=== PATIENT | male | born 1990 | race Caucasian/White ===

== ENCOUNTER 2022-08-30 00:58 | Emergency (ER) | payer BC ==
[~2022-08-30] VITALS: Ht 172.7 cm; Wt 65.8 kg
[2022-08-30] MEDS ORDERED: ZITHROMAX250 MG PO (02:49)
[2022-08-30] MEDS ORDERED: PREDNISONE20 M1 PO (02:49)
== END 2022-08-30 02:52 | disposition home or self-care (01) ==
LOC: ED 00:58
DX: J06.9 Acute upper respiratory infection, unspecified (principal); J45.901 Unspecified asthma with (acute) exacerbation; Z20.822 Contact with and (suspected) exposure to COVID-19

== ENCOUNTER 2022-11-26 10:54 | Emergency (ER) | payer BC ==
[~2022-11-26] VITALS: Ht 175.2 cm; Wt 90.7 kg
[~2022-11-26 10:54] MED LIST: PREDNISONE20 M1 PO; ZITHROMAX250 MG PO
[2022-11-26 11:34] LABS: BASO # 0.1 10*3/uL (0.0-0.1); BASO % 1.1 % (0.0-1.0); EOS % 8.5 % (1.0-4.0); HEMATOCRIT 48.3 % (42.0-52.0); LYMPH # 2.9 10*3/uL (1.3-4.4); LYMPH % 24.1 % (27.0-41.0); MEAN CELL VOLUME 92.2 fl (80.0-94.0); MEAN CORPUSCULAR HGB 30.5 pg (27.0-31.0); MEAN CORPUSCULAR HGB CONC 33.1 g/dl (33.0-37.0); MEAN PLATELET VOLUME 10.5 fl (9.6-12.3); MONO # 0.8 10*3/uL (0.1-1.0); MONO % 6.7 % (3.0-9.0); NEUT % 59.3 % (47.0-73.0); PLATELET COUNT AUTOMATED 256 10*3/uL (130-400); RED BLOOD COUNT 5.24 10*6/uL (4.50-5.90); RED CELL DISTRI WIDTH 12.9 % (0-14.5); WHITE BLOOD COUNT 11.8 10*3/uL (4.8-10.8)
[2022-11-26 11:49] LABS: ALKALINE PHOSPHATASE 65 U/L (46-116); BUN 12 mg/dl (9-23); CHLORIDE 109 mmol/L (98-107); POTASSIUM 3.6 mmol/L (3.4-5.1); SGPT/ALT 21 U/L (10-49); TOTAL PROTEIN 6.9 gm/dL (6.0-8.0)
[2022-11-26] MEDS ORDERED: VIBRA-TAB100 MG PO (11:49)
[2022-11-26] MEDS ORDERED: PROVENTIL HFA6.7 GM PO (11:49)
[2022-11-26] MEDS ORDERED: PREDNISONE10 MG PO (11:49)
== END 2022-11-26 12:35 | disposition home or self-care (01) ==
LOC: ED 10:54
PROVIDERS: Emergency Medicine
DX: J45.901 Unspecified asthma with (acute) exacerbation (principal); Z87.891 Personal history of nicotine dependence

== ENCOUNTER 2023-03-28 00:40 | Emergency (ER) | payer BC ==
[~2023-03-28] VITALS: Ht 172.7 cm; Wt 68.0 kg
[~2023-03-28 00:40] MED LIST changes: +PREDNISONE10 MG PO; +PROVENTIL HFA6.7 GM PO; +VIBRA-TAB100 MG PO
[2023-03-28 01:34] LABS: BASO # 0.2 10*3/uL (0.0-0.1); BASO % 1.3 % (0.0-1.0); EOS % 8.5 % (1.0-4.0); HEMATOCRIT 49.4 % (42.0-52.0); LYMPH # 3.2 10*3/uL (1.3-4.4); LYMPH % 27.9 % (27.0-41.0); MEAN CELL VOLUME 90.5 fl (80.0-94.0); MEAN CORPUSCULAR HGB 31.1 pg (27.0-31.0); MEAN CORPUSCULAR HGB CONC 34.4 g/dl (33.0-37.0); MEAN PLATELET VOLUME 10.5 fl (9.6-12.3); MONO # 0.7 10*3/uL (0.1-1.0); MONO % 6.1 % (3.0-9.0); NEUT # 6.4 10*3/uL (2.3-7.9); NEUT % 55.8 % (47.0-73.0); PLATELET COUNT AUTOMATED 296 10*3/uL (130-400); RED BLOOD COUNT 5.46 10*6/uL (4.50-5.90); RED CELL DISTRI WIDTH 12.7 % (0-14.5); WHITE BLOOD COUNT 11.5 10*3/uL (4.8-10.8)
[2023-03-28 01:56] LABS: ALKALINE PHOSPHATASE 70 U/L (46-116); BUN 10 mg/dl (9-23); CHLORIDE 104 mmol/L (98-107); POTASSIUM 3.8 mmol/L (3.4-5.1); SGPT/ALT 28 U/L (10-49); TOTAL PROTEIN 7.5 gm/dL (6.0-8.0)
[2023-03-28] MEDS ORDERED: PREDNISONE10 M1 PO (03:32)
[2023-03-28] MEDS ORDERED: PROVENTIL HFA6.7 GM INH (03:32)
== END 2023-03-28 03:52 | disposition home or self-care (01) ==
LOC: ED 00:40
PROVIDERS: Emergency Medicine
DX: J45.901 Unspecified asthma with (acute) exacerbation (principal); Z79.899 Other long term (current) drug therapy; Z79.2 Long term (current) use of antibiotics

== ENCOUNTER 2023-09-21 21:18 | Emergency (ER) | payer SELFPAY ==
[~2023-09-21] VITALS: Ht 172.7 cm; Wt 68.0 kg
[~2023-09-21 21:18] MED LIST changes: +PREDNISONE10 M1 PO; +PROVENTIL HFA6.7 GM INH
[2023-09-21 21:39] LABS: BASO # 0.1 10*3/uL (0.0-0.1); BASO % 0.9 % (0.0-1.0); EOS # 0.4 10*3/uL (0.0-0.4); EOS % 2.6 % (1.0-4.0); HEMATOCRIT 51.5 % (42.0-52.0); LYMPH # 2.2 10*3/uL (1.3-4.4); LYMPH % 14.7 % (27.0-41.0); MEAN CORPUSCULAR HGB 29.9 pg (27.0-31.0); MEAN CORPUSCULAR HGB CONC 33.2 g/dl (33.0-37.0); MEAN PLATELET VOLUME 10.2 fl (9.6-12.3); MONO % 6.5 % (3.0-9.0); NEUT # 11.1 10*3/uL (2.3-7.9); NEUT % 74.9 % (47.0-73.0); PLATELET COUNT AUTOMATED 359 10*3/uL (130-400); RED BLOOD COUNT 5.72 10*6/uL (4.50-5.90); RED CELL DISTRI WIDTH 12.2 % (0-14.5); WHITE BLOOD COUNT 14.8 10*3/uL (4.8-10.8)
[2023-09-21 22:04] LABS: ALKALINE PHOSPHATASE 89 U/L (46-116); BUN 8 mg/dl (9-23); CHLORIDE 107 mmol/L (98-107); CPK 126 U/L (34-171); LIPASE 32 U/L (12-53); POTASSIUM 3.8 mmol/L (3.4-5.1); SGPT/ALT 19 U/L (5-49); TOTAL PROTEIN 8.2 gm/dL (6.0-8.0)
[2023-09-21 22:05] LABS: ETHYL ALCOHOL < 3.0 mg/dl (<3)
[2023-09-21 22:24] LABS: BILIRUBIN Negative (Negative); BLOOD Negative (Negative); CLARITY Clear (Clear); COLOR Yellow (Yellow); GLUCOSE Negative (Negative); KETONE 1+ (Negative); LEUKO ESTERASE Trace (Negative); NITRITE Negative (Negative); PH 6.5 (4.5-8.0); SPECIFIC GRAVITY 1.015 (1.001-1.030)
[2023-09-21 22:31] LABS: URINE AMPHETAMINES Negative (1000ng/ml); URINE BARBITURATES Negative (200ng/ml); URINE BENZODIAZEPINES Negative (200ng/ml); URINE CANNABINOIDS (THC) Negative (50ng/ml); URINE COCAINE Negative (300ng/ml); URINE METHADONE Negative (300ng/ml); URINE OPIATES Negative (300ng/ml); URINE PHENCYCLIDINE Negative (25ng/ml)
[2023-09-21 23:15] LABS: BACTERIA 1+; MUCOUS 1+; RBC 0-2 rbc/hpf (0-2)
== END 2023-09-22 11:11 | disposition home or self-care (01) ==
LOC: ED 21:18
PROVIDERS: Internal Medicine
DX: F43.21 Adjustment disorder with depressed mood (principal); J45.909 Unspecified asthma, uncomplicated; Z79.899 Other long term (current) drug therapy

== ENCOUNTER 2023-10-04 13:24 | Emergency (ER) | payer OTHER ==
[~2023-10-04] VITALS: Ht 172.7 cm; Wt 68.0 kg
[2023-10-04] MEDS ORDERED: Lidocaine Hydrochloride 15 ML UDC PO STA (14:06)
[2023-10-04] MEDS ORDERED: BENZOCAINE 20% 11.9 GM GEL T STA (14:06)
[2023-10-04] MEDS ORDERED: Motrin,Rufen800 MG PO (14:06)
[2023-10-04] MEDS ORDERED: PENICILLIN VK500 MG PO (14:06)
[2023-10-04] MEDS ORDERED: Ketorolac Tromethamine 60 MG/2 ML VIAL IM ONE (14:10)
[2023-10-04] MEDS ORDERED: PENICILLIN V POTASSIUM 500 MG TAB PO ONE (14:10)
[2023-10-04] MEDS ORDERED: Acetaminophen/Hydrocodone 5 MG/325 MG TABLET PO ONE (14:10)
== END 2023-10-04 14:09 | disposition home or self-care (01) ==
LOC: ED 13:24
DX: K02.9 Dental caries, unspecified (principal); K04.7 Periapical abscess without sinus; J45.909 Unspecified asthma, uncomplicated

== ENCOUNTER 2023-10-16 15:20 | Emergency (ER) | payer OTHER ==
[~2023-10-16] VITALS: Ht 172.7 cm; Wt 68.0 kg
[~2023-10-16 15:20] MED LIST changes: +Motrin,Rufen800 MG PO; +PENICILLIN VK500 MG PO
[2023-10-16] MEDS ORDERED: methylPREDNISolone sod succ 125 MG VIAL IV ONE (15:40)
[2023-10-16] MEDS ORDERED: Albuterol Sulfate 2.5 MG/3 ML VIAL NEB SCH (15:45)
[2023-10-16 15:51] LABS: BASO # 0.1 10*3/uL (0.0-0.1); BASO % 1.2 % (0.0-1.0); EOS # 0.9 10*3/uL (0.0-0.4); EOS % 9.6 % (1.0-4.0); HEMATOCRIT 50.1 % (42.0-52.0); LYMPH # 2.7 10*3/uL (1.3-4.4); LYMPH % 28.4 % (27.0-41.0); MEAN CELL VOLUME 94.7 fl (80.0-94.0); MEAN CORPUSCULAR HGB 30.1 pg (27.0-31.0); MEAN CORPUSCULAR HGB CONC 31.7 g/dl (33.0-37.0); MEAN PLATELET VOLUME 10.6 fl (9.6-12.3); MONO # 0.7 10*3/uL (0.1-1.0); MONO % 6.9 % (3.0-9.0); NEUT # 5.2 10*3/uL (2.3-7.9); NEUT % 53.6 % (47.0-73.0); PLATELET COUNT AUTOMATED 283 10*3/uL (130-400); RED BLOOD COUNT 5.29 10*6/uL (4.50-5.90); RED CELL DISTRI WIDTH 12.8 % (0-14.5); WHITE BLOOD COUNT 9.6 10*3/uL (4.8-10.8)
[2023-10-16 16:19] LABS: BUN 7 mg/dl (9-23); CHLORIDE 106 mmol/L (98-107); POTASSIUM 4.1 mmol/L (3.4-5.1)
[2023-10-16] MEDS ORDERED: PREDNISONE20 M1 PO (17:17)
[2023-10-16] MEDS ORDERED: PROVENTIL HFA6.7 GM INH (17:17)
== END 2023-10-16 17:26 | disposition home or self-care (01) ==
LOC: ED 15:20
PROVIDERS: Nurse Practitioner
DX: J45.901 Unspecified asthma with (acute) exacerbation (principal)

== ENCOUNTER 2023-11-16 14:53 | Emergency (ER) | payer OTHER ==
[~2023-11-16] VITALS: Ht 172.7 cm; Wt 65.8 kg
[2023-11-16] MEDS ORDERED: ALBUTEROL 8 GM INHALER INH ONE (15:15)
[2023-11-16] MEDS ORDERED: methylPREDNISolone sod succ 125 MG VIAL IM ONE (15:15)
[2023-11-16] MEDS ORDERED: Albuterol Sulf/Ipratropium 3 ML VIAL NEB ONE (15:15)
[2023-11-16] MEDS ORDERED: PENICILLIN VK500 MG PO (16:19)
[2023-11-16] MEDS ORDERED: VENTOLIN 02.5 MG/3 M INH (16:19)
== END 2023-11-16 16:33 | disposition home or self-care (01) ==
LOC: ED 14:53
DX: J45.901 Unspecified asthma with (acute) exacerbation (principal); K08.89 Other specified disorders of teeth and supporting structures

== ENCOUNTER 2023-12-18 01:36 | Emergency (ER) | payer OTHER ==
[~2023-12-18] VITALS: Ht 172.7 cm; Wt 67.6 kg
[~2023-12-18 01:36] MED LIST changes: +VENTOLIN 02.5 MG/3 M INH
[2023-12-18] MEDS ORDERED: Albuterol Sulf/Ipratropium 3 ML VIAL NEB ONE (01:50)
[2023-12-18] MEDS ORDERED: predniSONE 20 MG TAB PO ONE (02:40)
[2023-12-18] MEDS ORDERED: ALBUTEROL 8 GM INHALER INH ONE (02:45)
== END 2023-12-18 02:56 | disposition home or self-care (01) ==
LOC: ED 01:36
DX: J45.901 Unspecified asthma with (acute) exacerbation (principal); F17.210 Nicotine dependence, cigarettes, uncomplicated

== ENCOUNTER 2024-08-13 10:24 | Emergency (ER) | payer SELFPAY ==
[~2024-08-13] VITALS: Ht 172.7 cm; Wt 65.8 kg
[2024-08-13] MEDS ORDERED: SODIUM CHLORIDE 0.9% 1,000 ML IV ONE (10:55)
[2024-08-13 11:11] LABS: BASO # 0.1 10*3/uL (0.0-0.1); BASO % 0.9 % (0.0-1.0); EOS # 0.4 10*3/uL (0.0-0.4); EOS % 2.7 % (1.0-4.0); HEMATOCRIT 43.7 % (42.0-52.0); MEAN CELL VOLUME 89.9 fl (80.0-94.0); MEAN CORPUSCULAR HGB 29.8 pg (27.0-31.0); MEAN CORPUSCULAR HGB CONC 33.2 g/dl (33.0-37.0); MEAN PLATELET VOLUME 9.9 fl (9.6-12.3); MONO # 1.1 10*3/uL (0.1-1.0); MONO % 8.5 % (3.0-9.0); NEUT # 8.7 10*3/uL (2.3-7.9); NEUT % 67.9 % (47.0-73.0); PLATELET COUNT AUTOMATED 316 10*3/uL (130-400); RED BLOOD COUNT 4.86 10*6/uL (4.50-5.90); RED CELL DISTRI WIDTH 12.1 % (0-14.5); WHITE BLOOD COUNT 12.8 10*3/uL (4.8-10.8)
[2024-08-13 11:35] LABS: BUN 9 mg/dl (9-23); CHLORIDE 105 mmol/L (98-107); POTASSIUM 3.5 mmol/L (3.4-5.1)
[2024-08-13] MEDS ORDERED: AZITHROMYCIN 250 MG TAB PO ONE (12:50)
[2024-08-13] MEDS ORDERED: ZITHROMAX250 MG PO (12:54)
[2024-08-13] MEDS ORDERED: VENT7GM INH (12:55)
== END 2024-08-13 13:08 | disposition home or self-care (01) ==
LOC: ED 10:24
PROVIDERS: Nurse Practitioner Family
DX: J98.4 Other disorders of lung (principal); Z20.822 Contact with and (suspected) exposure to COVID-19

== ENCOUNTER 2025-01-31 05:28 | Emergency (ER) | payer OTHER ==
[~2025-01-31] VITALS: Ht 172.7 cm; Wt 81.6 kg
[~2025-01-31 05:28] MED LIST changes: +VENT7GM INH
[2025-01-31] MEDS ORDERED: TYLE3UD PO (06:29)
[2025-01-31] MEDS ORDERED: Ondansetron4 MG PO (06:29)
== END 2025-01-31 06:18 | disposition home or self-care (01) ==
LOC: ED 05:28
DX: S06.0XAA Concussion with loss of consciousness status unknown, initial encounter (principal); S00.03XA Contusion of scalp, initial encounter; W20.8XXA Other cause of strike by thrown, projected or falling object, initial encounter; Y93.89 Activity, other specified; Y92.69 Other specified industrial and construction area as the place of occurrence of the external cause; Y99.0 Civilian activity done for income or pay

== ENCOUNTER 2025-07-25 16:01 | Emergency (ER) | payer OTHER ==
[~2025-07-25] VITALS: Ht 172.7 cm; Wt 70.3 kg
[~2025-07-25 16:01] MED LIST changes: +Ondansetron4 MG PO; +TYLE3UD PO
[2025-07-25] MEDS ORDERED: NAPROSYN500 MG PO (16:36)
[2025-07-25] MEDS ORDERED: PENICILLIN V POTASSIUM 500 MG TAB PO ONE (16:40)
[2025-07-25] MEDS ORDERED: Acetaminophen/Oxycodone 5 MG/325 MG TABLET PO ONE (16:40)
== END 2025-07-25 16:49 | disposition home or self-care (01) ==
LOC: ED 16:01
DX: K04.7 Periapical abscess without sinus (principal); K03.81 Cracked tooth; J45.909 Unspecified asthma, uncomplicated; F17.210 Nicotine dependence, cigarettes, uncomplicated